=== PATIENT | female | born 2005 | race Hispanic/Latino ===

== ENCOUNTER 2025-07-08 19:34 | Emergency (ER) | payer OTHER ==
[~2025-07-08] VITALS: Ht 160 cm; Wt 86.2 kg
[2025-07-08 19:40] VITALS: PULSE 88; RESP 19; TEMP 98.7
[2025-07-08] MEDS ORDERED: IBUPROFEN600 MG PO (20:35)
[2025-07-08 21:13] VITALS: BP 133/65; PULSE 80; RESP 18; TEMP 98.5; O2SAT 98
== END 2025-07-08 21:00 | disposition home or self-care (01) ==
LOC: FSED 19:42
DX: S00.83XA Contusion of other part of head, initial encounter (principal); R51.9 Headache, unspecified; V53.5XXA Driver of pick-up truck or van injured in collision with car, pick-up truck or van in traffic accident, initial encounter; Y92.488 Other paved roadways as the place of occurrence of the external cause
CPT/HCPCS: 70450; 81003; 81025; 99284